=== PATIENT | female | born 1990 | race Caucasian/White ===

== ENCOUNTER 2018-10-31 09:50 | Day surgery (SDC) | payer BC ==
[2018-10-30 12:05] VITALS: BMI 21.9
[2018-10-30 12:49] LABS: Hemoglobin 12.1 g/dL (12.0-16.0); Mean Corpuscular HGB CONC 34.5 g/dL (32.0-36.0); Mean Corpuscular Hemoglobin 32.3 pg (27.0-31.0); Mean Corpuscular Volume 93.6 fL (78.0-98.0); Mean Platelet Volume 6.8 fL (7.4-10.4); Platelet Count 249 thou/uL (130-400); RBC Distribution Width 11.6 % (11.5-14.5); Red Blood Cell (RBC) Count 3.75 mill/uL (4.20-5.40); White Blood Cell (WBC) Count 10.6 thou/uL (4.8-10.8)
[2018-10-31] MEDS ORDERED: Bupivacaine HCl 0.5%/Epinephrine 1:200,000/PF 30 ml Vial ONE (11:48)
[2018-10-31] MEDS ORDERED: Glycopyrrolate 0.2 MG/ML 5 ML SYRINGE ONE (12:11)
[2018-10-31] MEDS ORDERED: PROPOFOL 200 MG/20 ML VIAL ONE (12:11)
[2018-10-31] MEDS ORDERED: PHENYLEPHRINE-NS 100 MCG/ML 10 ML SYRINGE ONE (12:11)
[2018-10-31] MEDS ORDERED: Esmolol 100 MG/10 ML VIAL ONE (12:11)
[2018-10-31] MEDS ORDERED: Ondansetron PF 4 MG/2 ML Vial ONE (12:11)
[2018-10-31] MEDS ORDERED: ePHEDrine 50 MG/ML VIAL ONE (12:11)
[2018-10-31] MEDS ORDERED: Lidocaine 1% PF 5 ML VIAL ONE (12:11)
[2018-10-31] MEDS ORDERED: Rocuronium Bromide 10 MG/ML (10ML VIAL) ONE (12:11)
[2018-10-31] MEDS ORDERED: Succinylcholine Chloride 20 MG/ML 10 ml SYRINGE FS ONE (12:11)
[2018-10-31] MEDS ORDERED: Fentanyl 100 MCG/2 ML VIAL ONE ×2 (12:50→13:34)
[2018-10-31] MEDS ORDERED: Scopolamine 1.5 mg/72 hour Patch ONE (12:50)
--- NOTE | 2018-10-31 16:20 | OP ---
DATE OF PROCEDURE: 10/31/2018 PREOPERATIVE DIAGNOSES: 1. A 16-week gestational age. 2. A 10 cm left ovarian cyst noted to enlarge in size throughout . POSTOPERATIVE DIAGNOSES: 1. A 16-week gestational age. 2. A 10 cm left ovarian cyst noted to enlarge in size throughout . PROCEDURE PERFORMED: Laparoscopic left ovarian cystectomy. ASSIST: Bridgette Foster MD COMPLICATIONS: None. EBL: Less than 5 mL. ANESTHESIA: GETA. OPERATIVE FINDINGS: 1. Gravid uterus. 2. Normal-appearing right tube and right ovary. 3. Normal-appearing left tube and large simple left ovarian cyst. 4. Clear cyst fluid, sent for cytologic review. DESCRIPTION OF PROCEDURE: The patient was taken back to the OR with IV fluids running. When she was in the OR, general anesthesia was obtained and the patient was placed in the low dorsal lithotomy position. The abdomen and vagina were prepped and draped in normal fashion for gynecologic laparoscopy. Surgeons were scrubbed in, gowned and gloved. Berkowitz catheter was placed into the bladder to drain the bladder during the procedure. The surgeon's gloves were changed and attention was turned to the laparoscopic portion of the case. Beginning at the umbilicus, local anesthesia was placed at the supraumbilical fold. A 5 mm skin incision was made with the scalpel. A Veress needle was then placed through the skin incision and the abdomen was insufflated without difficulty. A 5 mm optic trocar was then placed under direct visualization without difficulty. Once the umbilical trocar was in place, the patient was placed in Trendelenburg position and the above findings were noted. The right lower quadrant port was placed in similar technique and using direct visualization, a 10 mm trocar was placed at the site. Next, under direct visualization, using similar technique, left lower quadrant 5 mm port was placed. Through these ports, two blunt graspers were entered under direct visualization. The left ovarian cystic mass was then gently elevated out of the cul-de-sac and laid adjacent to the uterus. Laparoscopic scissors were used to make a small hole in the ovarian cyst wall. [employer] group work program director was then placed through this incision and the cyst fluid was sucked down to reduce the size of the cyst. The cyst fluid was sent for cytologic review. Next, a blunt graspers were used to elevate the left ovary and cyst wall away from the pelvic sidewall and uterus. A LigaSure device was then used to cauterize and transect the cyst wall. After the cyst was removed from the ovary, it was removed into the specimen pieces through the 10 mm trocar in the right lower quadrant. The cyst removed. Remaining ovarian tissue was inspected with no bleeding noted. The left fallopian tube was normal appearing. All instruments were then removed from the abdomen. The counts were correct. The gas was released from the abdomen. All 3 skin incisions were closed with Monocryl suture and dressed with Dermabond dressing. The patient was then cleaned, dried, taken out of lithotomy position, extubated, and transferred to recovery room in good condition with plans for Dopplering the heart tones in the recovery room and discharged home later today. Job ID: [id number]
== END 2018-10-31 16:40 | disposition home or self-care (01) ==
LOC: SDC 09:50
PROVIDERS: ATTEND Obstetrics & Gynecology
PROC: 0UB14ZZ Excision of Left Ovary, Percutaneous Endoscopic Approach (ICD-10-PCS; principal; 2018-10-31)
DX: O99.89 Other specified diseases and conditions complicating pregnancy, childbirth and the puerperium (principal); D27.1 Benign neoplasm of left ovary; Z3A.16 16 weeks gestation of pregnancy; Z79.899 Other long term (current) drug therapy; Z88.2 Allergy status to sulfonamides
CPT/HCPCS: 36415; 85027; 86850; 86900; 86901; 88112; 88307; J0131; J0670; J0690; J2001; J2405; J2704; J3010; J3490

== ENCOUNTER 2019-03-27 21:32 | Inpatient (IN) | payer BC ==
[2019-03-27 22:16] VITALS: BMI 27.6
[2019-03-27] MEDS ORDERED: Penicillin G Potassium 5 MILL.UNITS VIAL ONE (22:39)
[2019-03-27] MEDS ORDERED: Promethazine HCl 25 MG/ML VIAL IM PRN (22:42)
[2019-03-27] MEDS ORDERED: Meperidine HCl/PF 25 MG/ML VIAL IM/IV PRN (22:42)
[2019-03-27] MEDS ORDERED: Butorphanol Tartrate 1 MG/ML VIAL SLOW IVP PRN (22:42)
[2019-03-27] MEDS ORDERED: Ibuprofen 800 MG TAB PO PRN (22:42)
[2019-03-27] MEDS ORDERED: Acetaminophen/Codeine 30-300mg Tablet PO PRN ×2 (22:42)
[2019-03-27] MEDS ORDERED: Ondansetron PF 4 MG/2 ML Vial IVP PRN (22:42)
[2019-03-27] MEDS ORDERED: Lidocaine 1% (PF) 30 ML VIAL SC PRN (22:42)
[2019-03-27] MEDS ORDERED: hydrALAZINE 20 MG/ML VIAL SLOW IVP PRN (22:42)
[2019-03-27] MEDS ORDERED: Lactated Ringer's 1,000 ML IV SCH (22:45)
[2019-03-27] MEDS ORDERED: NS w/ Oxytocin 10 units 500 ML IV SCH (22:45)
--- NOTE | 2019-03-27 22:47 | PDOC.LDHP ---
Labor and Delivery H&P Chief complaint: contractions, loss of fluid HPI: 28 yo WF c/o UCs and LOF since 8pm. Current gestational age (weeks): 37 Dating criteria: last menstrual period Grav: 1 Para: 0 Current complications: none Abnormal US findings: No Current medications: pre-roney vitamins Previous surgical history: other (scope for ovarian cyst) Allergies/Adverse Reactions: Allergies Allergy/AdvReac Type Severity Reaction Status Date / Time Sulfa (Sulfonamide Allergy Unknown Verified 10/30/18 12:05 Antibiotics) Social history: none - Physical Exam Vital signs reviewed and normal: yes General: breathing through contractions Heart: RRR Lungs: CTAB Abdomen: gravid Extremeties: trace edema FHT: category 1 [place] contractions every: q 3-4 mins - Vaginal Exam cm dilated: 6 Effacement: 100% Station: 1+ - OB Labs GBS: positive - Assessment L&D Assessment: term rupture in membranes - Plan Plan: admit to L&D, GBS antibiotic prophylaxis, informed consent obtained, anesthesia consult for pain management (Dr. Mehta notified, told [facility] to manage)
[2019-03-27] MEDS ORDERED: Lidocaine 1% (PF) 30 ML VIAL ONE (22:49)
[2019-03-27] MEDS ORDERED: NS / Oxytocin 40 units/1000ml 1,000 ML ONE (22:49)
[2019-03-27] MEDS ORDERED: Penicillin G Potassium 5 MILL.UNITS in Sodium Chloride 0.9% 100 ML IVPB SCH (23:00)
[2019-03-27 23:12] LABS: Hemoglobin 12.5 g/dL (12.0-16.0); Mean Corpuscular HGB CONC 34.3 g/dL (32.0-36.0); Mean Corpuscular Hemoglobin 31.3 pg (27.0-31.0); Mean Platelet Volume 7.3 fL (7.4-10.4); Platelet Count 267 thou/uL (130-400); RBC Distribution Width 11.8 % (11.5-14.5); Red Blood Cell (RBC) Count 3.99 mill/uL (4.20-5.40); White Blood Cell (WBC) Count 15.3 thou/uL (4.8-10.8)
[2019-03-27] MEDS: Lactated Ringer's 1,000 ML IV SCH (23:13)
[2019-03-27 23:52] LABS: HBSAg Index 0.14 S/CO (0-0.99); Hep B Surf Ag Non-Reactive S/CO (NonReactive)
[2019-03-27 23:53] LABS: Syphilis Antibody Nonreactive (Nonreactive); Syphilis Antibody Index 0.06 S/CO (<1.00 Non-Reactive)
[2019-03-27] MEDS ORDERED: Fentanyl 4 mcg/Bup 0.1% Cadd 100 ML ONE (23:54)
[2019-03-28] MEDS ORDERED: Ondansetron PF 4 MG/2 ML Vial IVP PRN ×2 (00:14→11:14)
[2019-03-28] MEDS ORDERED: Naloxone HCl 0.4 mg/ml Vial IVP PRN ×2 (00:14)
[2019-03-28] MEDS ORDERED: diphenhydrAMINE 50 MG/ML VIAL IVP PRN (00:14)
[2019-03-28] MEDS ORDERED: Promethazine HCl 25 MG/ML VIAL IM PRN (00:14)
[2019-03-28] MEDS ORDERED: Acetaminophen 325 MG TAB PO PRN (00:14)
[2019-03-28] MEDS ORDERED: ePHEDrine/0.9% NaCl/PF SYRINGE 50 mg/10 ml SLOW IVP PRN (00:14)
[2019-03-28] MEDS ORDERED: Lactated Ringer's 500 ML IV PRN (00:14)
[2019-03-28] MEDS ORDERED: Fentanyl 4 mcg/Bupivacaine 0.1% Cassette 100 ML EPIDURAL SCH (00:15)
[2019-03-28] MEDS ORDERED: Communication Order-Pharmacy FS SCH (00:15)
[2019-03-28] MEDS: NS / Oxytocin 40 units/1000ml 1,000 ML IV PRN ×2 (02:02→07:39)
[2019-03-28] MEDS ORDERED: Methylergonovine 0.2 MG/ML VIAL ONE (02:04)
--- NOTE | 2019-03-28 02:17 | PDOC.OPDEL ---
OB Operative/Delivery Note Delivery Dr/Surgeon: Fam Pre-Delivery Diagnosis: active labor Procedure/Post Delivery Dx: spontaneous vaginal delivery Weeks gestation: 38 Anesthesia: epidural - Additional Findings/Plan Placenta delivered: spontaneous Repaired Obstetrical Laceration: 2nd degree Estimated blood loss: 400 cc Compilations/Other Findings: Viable male over 2* MLE with terminal bradycardia. Viable male OA Apgars 8/9. Placenta delivered intact with 20% abruption seen. Atony x 1 tx. with massage, pit drip and Methergine .2 IM with good result. Repaired in layers with 2-0 chromic. To recover in L&D. Pen G x1 dose given. Post delivery plan: routine recovery
[2019-03-28 02:32] LABS: Actual Bicarbonate (HCO3v) 22 mEq/L (22-28); Base Excess -2.2 mEq/L (-2.0 to +3.0); pH (Cord, venous) 7.39 (7.32-7.43)
[2019-03-28 02:34] LABS: Actual Bicarbonate (HCO3a) 24.5 mEq/L (22-28); Base Excess (BEa) -2.9 mEq/L (-2.0 to +3.0)
[2019-03-28] MEDS ORDERED: Penicillin G 2.5 MILL.units 2.5 MILL.UNITS in Premix Bag 1 BAG IVPB SCH (03:00)
--- NOTE | 2019-03-28 08:41 | PDOC.PP ---
Post Progress Note Post Day #: 0 Subjective: doing well, minimal discomfort PO intake tolerated: yes Flatus: yes Ambulation: yes Vital Signs (12 hours) Temp Pulse Resp BP 03/27/19 22:05 98.9 F 75 18 107/66 Weight Weight 151 lb - Physical Examination General: NAD Respiratory: non-labored breathing Abdominal: no distention Neurological: no gross focal deficits Psychiatric: A&Ox3, normal affect Result Diagrams: 03/27/19 22:54 Additional Labs: Post Labs Blood Type O POSITIVE 03/27/19 22:54 Hep Bs Antigen Non-Reactive S/CO (NonReactive) 03/27/19 22:54 (1) 37 weeks gestation of Code(s): Z3A.37 - 37 WEEKS GESTATION OF Status: Acute (2) Vaginal delivery Code(s): O80 - ENCOUNTER FOR FULL-TERM UNCOMPLICATED DELIVERY Status: Acute - Assessment/Plan PPD0 doing well, recent overnight delivery. Continue PP care.
[2019-03-28] MEDS ORDERED: diphenhydrAMINE 25 MG CAP PO PRN (11:14)
[2019-03-28] MEDS ORDERED: Benzocaine-Menthol 82.5 ML CAN TOP PRN (11:14)
[2019-03-28] MEDS ORDERED: Preparation H Ointment 28 GM TUBE PR PRN (11:14)
[2019-03-28] MEDS ORDERED: Milk Of Magnesia 30 ML UDCUP PO PRN (11:14)
[2019-03-28] MEDS ORDERED: NS / Oxytocin 40 units/1000ml 1,000 ML IV SCH (11:14)
[2019-03-28] MEDS ORDERED: Bisacodyl 10 MG SUPP PR PRN (11:14)
[2019-03-28] MEDS ORDERED: Lanolin Ointment 7 GM TUBE TOP PRN (11:14)
[2019-03-28] MEDS ORDERED: Adacel (T-DAP) 0.5 ML SYRINGE IM ONE (11:14)
[2019-03-28] MEDS ORDERED: hydrALAZINE 20 MG/ML VIAL SLOW IVP PRN (11:14)
[2019-03-28] MEDS: Lactated Ringer's 1,000 ML IV SCH ×3 (14:02→23:55)
[2019-03-28] MEDS: Ferrous Sulfate 325 MG TAB PO SCH (14:57)
[2019-03-28] MEDS: Ibuprofen 800 MG TAB PO SCH (17:03)
[2019-03-28] MEDS: Docusate Calcium (SURFAK) 240 MG CAP PO SCH (21:11)
[2019-03-29] MEDS: Ibuprofen 800 MG TAB PO SCH ×4 (00:21→21:22)
[2019-03-29 04:25] LABS: Hemoglobin 9.8 g/dL (12.0-16.0)
[2019-03-29] MEDS: Lactated Ringer's 1,000 ML IV SCH ×2 (05:01→18:29)
--- NOTE | 2019-03-29 10:09 | PDOC.PP ---
Post Progress Note Post Day #: 1 Subjective: doing well, no concerns PO intake tolerated: yes Flatus: yes Ambulation: yes Vital Signs (12 hours) Temp Pulse Resp BP Pulse Ox 03/29/19 08:20 98.0 F 73 20 100/63 96 03/29/19 04:00 98.1 F 69 18 96/60 95 03/29/19 00:00 97.9 F 78 18 98/55 L 96 Weight Weight 151 lb - Physical Examination General: NAD Respiratory: non-labored breathing Skin: no rash Neurological: no gross focal deficits Psychiatric: A&Ox3, normal affect Result Diagrams: 03/29/19 04:10 Additional Labs: Post Labs Blood Type O POSITIVE 03/27/19 22:54 Hep Bs Antigen Non-Reactive S/CO (NonReactive) 03/27/19 22:54 (1) 37 weeks gestation of Code(s): Z3A.37 - 37 WEEKS GESTATION OF Status: Acute (2) Vaginal delivery Code(s): O80 - ENCOUNTER FOR FULL-TERM UNCOMPLICATED DELIVERY Status: Acute - Assessment/Plan PPD1 doing well, likely DC tomorrow.
[2019-03-29] MEDS: Prenatal Vitamin 1 TAB PO SCH ×2 (10:16→10:19)
[2019-03-29] MEDS: Docusate Calcium (SURFAK) 240 MG CAP PO SCH ×2 (10:20→21:22)
[2019-03-29] MEDS: Ferrous Sulfate 325 MG TAB PO SCH ×2 (10:20→18:30)
[2019-03-29 21:13] VITALS: TEMP 98.1
[2019-03-30] MEDS: Lactated Ringer's 1,000 ML IV SCH (00:01)
[2019-03-30] MEDS: Ibuprofen 800 MG TAB PO SCH ×2 (06:24→09:31)
--- NOTE | 2019-03-30 06:40 | PDOC.PP ---
Post Progress Note Post Day #: 2 Subjective: Doing well PO intake tolerated: yes Flatus: yes Ambulation: yes Vital Signs (12 hours) Temp Pulse Resp BP Pulse Ox 03/29/19 19:02 98.1 F 81 16 97/50 L 98 Weight Weight 151 lb Last BPs over least 24 hrs reviewed - Physical Examination General: NAD Cardiovascular: no m/r/g Respiratory: clear to auscultation bilaterally Abdominal: appropriately TTP Extremities: negative homans (B) Neurological: no gross focal deficits Psychiatric: A&Ox3, normal affect Result Diagrams: 03/29/19 04:10 Additional Labs: Post Labs Blood Type O POSITIVE 03/27/19 22:54 Hep Bs Antigen Non-Reactive S/CO (NonReactive) 03/27/19 22:54 (1) Vaginal delivery Code(s): O80 - ENCOUNTER FOR FULL-TERM UNCOMPLICATED DELIVERY Status: Acute - Assessment/Plan PPD2... ok for discharge. Discharged per request of Dr Mehta. F/U 2 weeks PP No acute issues identified
[2019-03-30 08:34] VITALS: BP 101/62
[2019-03-30] MEDS: Docusate Calcium (SURFAK) 240 MG CAP PO SCH (09:31)
[2019-03-30] MEDS: Ferrous Sulfate 325 MG TAB PO SCH (09:32)
== END 2019-03-30 14:20 | disposition home or self-care (01) | DRG 807 ==
LOC: L&D/OP 21:32 → L&D 23:13 → 3SW 03-28 13:46
PROVIDERS: ADMIT Obstetrics & Gynecology; ATTEND Obstetrics & Gynecology
PROC: 10E0XZZ Delivery of Products of Conception, External Approach (ICD-10-PCS; principal; 2019-03-27)
PROC: 0KQM0ZZ Repair Perineum Muscle, Open Approach (ICD-10-PCS; 2019-03-27)
DX: O76 Abnormality in fetal heart rate and rhythm complicating labor and delivery (principal); Z37.0 Single live birth; O70.1 Second degree perineal laceration during delivery; O99.824 Streptococcus B carrier state complicating childbirth; O62.2 Other uterine inertia; Z3A.37 37 weeks gestation of pregnancy; Z88.2 Allergy status to sulfonamides
CPT/HCPCS: 36415; 51702; 82805; 85014; 85018; 85027; 86780; 86850; 86900; 86901; 87340; 88307; 99285; J2001; J2210; J2540; J3490